=== PATIENT | female | born 1985 | race Caucasian/White ===

== ENCOUNTER 2018-12-14 06:29 | Inpatient (IN) ==
--- NOTE | 2018-12-08 08:52 | PAT Medication Instructions ---
Medication Instructions Date of Service December 08, 2018 Home Medications PNV cmb#95-ferrous fumarate-FA [] 1 tab PO HS ranitidine HCl 150 mg PO DAILY DO NOT take the morning of surgery ranitidine HCl 150 mg PO DAILY Take evening before surgery PNV cmb#95-ferrous fumarate-FA [] 1 tab PO HS Other Notes If you have any questions please call us at [phone] or [phone] or [phone] or [phone]
--- NOTE | 2018-12-08 12:54 | Anesthesiology Consultation ---
Date of Service December 08, 2018 Assessment & Plan (1) Encounter for pre-operative examination: Per patient, no known hx blood transfusions. Per OB, no labs to be drawn at [facility]; ordered for AM day of c/s. Chart Review Chart Review: Acceptable Risk for Surgery (pending labs AM day of c/s) and Patient seen in Pre Admission Testing Teaching & Discussion Pre-Anesthesia Teaching/Discussion Notes: Instructed NPO after midnight before surgery,except medications with 15 cc of water. Medication instructions provided according to the [facility] guidelines. History Surgery Operation Date: 12/14/18 07:30 Proposed Procedures p Section in LD with - Kumar Xiong MD s Post Tubal Ligation - Kumar Xiong MD Height/Weight Height: 5 ft 5 in Weight: 99.8 kg Allergies Allergy/AdvReac Type Severity Reaction Status Date / Time No Known Allergies Allergy Verified 12/02/18 08:40 Medications Home Medications Medication Instructions Recorded Confirmed Last Taken PNV cmb#95-ferrous fumarate-FA 1 tab PO HS 12/02/18 12/02/18 Unknown [] ranitidine HCl 150 mg PO DAILY 12/02/18 12/02/18 Unknown Past Medical History Medical History Degenerative disc disease GERD (gastroesophageal reflux disease) CONTROLLED WITH ZANTAC Osteoarthritis Exercise / Class Metabolic Activity III < 4 Walking/Shop/Light housework Past Family History Family History Mother Family history of diabetes mellitus Father Family hx of colon cancer Past Surgical History Surgical History History of appendectomy History of section 2013 = 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= EPIDURAL ?DOSED FOR C/S- PATIENT REPORTS PAIN DURING C/S History of colonoscopy History of conization of cervix History of tooth extraction Past Anesthesia History No Hx of Anesthesia Complications and No Family Hx of Anesthesia Complications History of PONV No Hx of PONV and No Hx of Motion Sickness Social History Smoking Status: Former smoker tobacco type: cigarettes Do You Dip or Chew Tobacco: No Smoking End Date: QUIT 2012 Hx Alcohol Use: No Hx Substance Use: No substance use type: does not use Review of Systems Patient denies chest pain, shortness of breath, cough, wheezing, palpitations. Physical Exam Vital Signs VITALS BP 111/73 P 98 TEMP 98.4 SP02 98%RA RESP 16 PHYSICAL Full neck and c-spine range of motion. Full TMJ range of motion. TMD 4 finger breaths Mallampati Score 3 Dentition: missing molars Lungs: clear throughout to auscultation Cardiac: regular rate and rhythm, no murmurs noted Spine: normal Carotid arteries: negative bruit Extremities: no edema
--- NOTE | 2018-12-14 01:14 | History and Physical Report ---
DATE OF ADMISSION: 12/14/2018 REASON FOR ADMISSION: Term elective repeat section at 39 weeks. HISTORY OF PRESENT ILLNESS: The patient is a 33-year-old female 2, para 1-0-0-1, admitted for elective repeat section at 39 weeks. PAST MEDICAL HISTORY: Positive for history of tobacco use. SOCIAL HISTORY: Denies smoking at this point. No alcohol or drug use. PAST SURGICAL HISTORY: Includes primary section, appendix, ankle surgery and breast implants. FAMILY HISTORY: Noncontributory. REVIEW OF SYSTEMS: Negative. ALLERGIES: No known drug allergies. POLLEN IS THE ONLY LISTED ALLERGY. MEDICATIONS: vitamin. PHYSICAL EXAMINATION: HEENT: Within normal limits. LUNGS: Clear to auscultation. CARDIOVASCULAR: Regular rate and rhythm. ABDOMEN: Soft, nontender, gravid. NEUROLOGIC: Intact, no edema. LABORATORY DATA: Group B strep is positive. ASSESSMENT AND PLAN: Term for elective repeat section. The patient is refusing trial of labor after .
[2018-12-14] MEDS ORDERED: LACTATED RINGER'S 1,000 ML IV SCH ×3 (06:45→10:15)
[2018-12-14 06:52] LABS: Basophils # (auto) 0.01 K/uL (0-0.2); Basophils % (auto) 0.1 %; Eosinophils # (auto) 0.05 K/uL (0-0.5); Eosinophils % (auto) 0.6 %; Hematocrit (blood only) 36.2 % (37-47); Hemoglobin 12.6 g/dL (12.0-16.0); Immature Granulocytes # (auto) 0.04 K/uL (0.00-0.02); Immature Granulocytes % (auto) 0.5 %; Lymphocytes # (auto) 1.94 K/uL (1.2-3.4); Lymphocytes % (auto) 23.4 %; Mean Corpuscular Volume 87.4 fL (80-100); Mean Platelet Volume 10.1 fL (7.4-10.4); Monocytes # (auto) 0.67 K/uL (0.11-0.59); Monocytes % (auto) 8.1 %; Neutrophils # (auto) 5.58 K/uL (1.4-6.5); Neutrophils % (auto) 67.3 %; Platelet Count 183 K/uL (130-400); RDW Coefficient of Variation 13.8 % (11.5-14.5); RDW Standard Deviation 43.9 fL (36.4-46.3); Red Blood Count 4.14 M/uL (4.2-5.4); White Blood Count 8.29 K/uL (4.8-10.8)
[2018-12-14 07:00] LABS: Mean Corpuscular Hgb Conc 34.8 g/dL (32-36)
[2018-12-14] MEDS ORDERED: CITRIC ACID/SODIUM CITRATE 15 ML UDC PO SCH (07:00)
[2018-12-14] MEDS ORDERED: CEFAZOLIN 3000MG 65 ML IV SCH (07:00)
--- NOTE | 2018-12-14 07:26 | History & Physical Bridge Note ---
Date of Service December 14, 2018 History & Physical Bridge Note I have examined the patient, reviewed the History & Physical and in the interval since the performance of the History & Physical I have noted the following changes of clinical significance: no changes noted
[2018-12-14] MEDS ORDERED: fentaNYL citrate 100 MCG/2 ML VIAL ONE (08:52)
[2018-12-14] MEDS ORDERED: MoRPHine SULFATE PF 1 MG/ML 10 ML AMP/VIAL ONE (08:52)
[2018-12-14] MEDS ORDERED: NALOXONE HCL 1 MG in SODIUM CHLORIDE 0.9% 1000ML 1,000 ML IV PRN (09:50)
[2018-12-14] MEDS ORDERED: ONDANSETRON INJ 2 MG/ML 2 ML VIAL ONE (09:50)
[2018-12-14] MEDS ORDERED: OXYTOCIN 10 UNITS/ML VIAL ONE (09:50)
[2018-12-14] MEDS ORDERED: MEPERIDINE HCL 25 MG/ML CARP IV PRN (09:50)
[2018-12-14] MEDS ORDERED: NALBUPHINE HCL INJ 10 MG/ML AMP IV PRN (09:50)
[2018-12-14] MEDS ORDERED: PHENYLEPHRINE HCL 10 MG/ML VIAL ONE (09:50)
[2018-12-14] MEDS ORDERED: ONDANSETRON INJ 2 MG/ML 2 ML VIAL IV PRN (09:50)
[2018-12-14] MEDS ORDERED: NALOXONE HCL 0.08 MG in SYRINGE 1.8 ML IV PRN (09:50)
[2018-12-14] MEDS ORDERED: ePHEDrine sulfate 50 MG/ML AMP IV PRN (09:50)
[2018-12-14] MEDS ORDERED: MoRPHine SULFATE PF 1 MG/ML 10 ML AMP/VIAL INT SPINAL ONE (09:50)
[2018-12-14] MEDS ORDERED: MoRPHine SULFATE 2 MG/ML CARP IV PRN (09:50)
[2018-12-14] MEDS ORDERED: DiphenhydrAMINE HCL 50 MG/ML VIAL IV PRN (09:50)
[2018-12-14] MEDS ORDERED: LACTATED RINGER'S 500 ML IV PRN (09:50)
[2018-12-14] MEDS ORDERED: NALOXONE HCL 0.4 MG/1 ML VIAL/CARP IV PRN (09:50)
[2018-12-14] MEDS ORDERED: NO NARCOTICS OR SEDATIVES SCH (10:00)
[2018-12-14] MEDS ORDERED: SODIUM CHLORIDE 0.9% 1000ML 1,000 ML IV SCH (10:00)
--- NOTE | 2018-12-14 10:10 | Post Operative Brief Note ---
Immediate Post Op Note v1 Date of Surgery December 14, 2018 Pre & Post Diagnosis Operation Date: 12/14/18 08:30 Pre-Op Diagnosis: Term elective repeat section at 39 weeks, desires tubal ligation Post-Op Diagnosis: Same as pre-op Procedure Operation Date: 12/14/18 08:30 Actual Procedures p Section in LD; delivery live male child at 0935 - Kumar Xiong MD s Post Tubal Ligation(Bilateral) - Kumar Xiong MD Surgeon Kumar Xiong MD Direct Entry Midwife Peggy Estimated Blood Loss 400 Findings Consistent with Post-Op Diagnosis live male Apgars and weight pending Fluids 1300 ml. Specimens Placenta Drains Rivera Catheter (applied after anesthesia by Tommy Arnold RN; clear yellow urine) Anesthesia Type Spinal Complications none Disposition Accompanied Patient To Recovery: Yes Disposition: L&D Overlapping Procedure I was present for: the critical portions of procedure. I was immediately available: during the entire case. Back up surgeon: used during listed procedure.
[2018-12-14] MEDS ORDERED: MAGNESIUM HYDROXIDE SUSP 30 ML UDC PO PRN (10:12)
[2018-12-14] MEDS ORDERED: SENNA 8.6 MG TAB PO PRN (10:12)
[2018-12-14] MEDS ORDERED: DIPHTHERIA/TETANUS/PERTUSSIS 0.5 ML SYR/VIAL IM ONE (10:12)
[2018-12-14] MEDS ORDERED: HYDROCORTISONE ACETATE 25 MG SUPP PR PRN (10:12)
[2018-12-14] MEDS ORDERED: MEASLES, MUMPS & RUBELLA VIRUS VIAL SQ ONE (10:12)
[2018-12-14] MEDS ORDERED: BENZOCAINE 20% AER SPR 82.5 GM CAN EXT PRN (10:12)
[2018-12-14] MEDS ORDERED: SUPERCREAM 0.870% 15 GM JAR EXT PRN (10:12)
--- NOTE | 2018-12-14 10:22 | Anesthesiology Progress Note ---
Date of Service December 14, 2018 Anesthesia Post Procedure Vital Signs Vital Signs: Temp Pulse Resp BP Pulse Ox 12/14/18 10:19 95 H 105/53 L 100 12/14/18 07:26 36.9 C 20 12/14/18 06:50 36.9 C 94 H 18 125/69 Transfer of Care Handoff Completed per policy Notes Mental Status: alert / awake / arousable Patient Amnestic to Procedure: No Nausea / Vomiting: adequately controlled Pain: adequately controlled Airway Patency, RR, SpO2: stable & adequate BP & HR: stable & adequate Hydration State: stable & adequate Neuraxial Anesthesia: was administered and sensory block is resolving Anesthetic Complications: no major complications apparent and Pt Satisfied with anesthetic care
[2018-12-14] MEDS: KETOROLAC 30 MG/ML VIAL IV PRN ×2 (11:50→21:04)
[2018-12-14] MEDS ORDERED: OXYTOCIN 20 UNITS in LACTATED RINGER'S 1,000 ML IV SCH (12:15)
[2018-12-14] MEDS: SIMETHICONE 80 MG CHEW PO SCH ×2 (17:30→21:05)
[2018-12-14] MEDS ORDERED: NON-FORMULARY MEDICATION (Pnv Cmb#95-Ferrous Fumarate-Fa [Prenatal] 1 TAB) PO SCH (21:00)
[2018-12-14] MEDS: DOCUSATE SODIUM 100 MG CAP PO SCH (21:04)
--- NOTE | 2018-12-15 01:09 | Operative Report ---
DATE OF OPERATION: 12/14/2018 PREOPERATIVE DIAGNOSIS: Term elective repeat section and voluntary sterilization. POSTOPERATIVE DIAGNOSIS: Term elective repeat section and voluntary sterilization. PROCEDURE: Repeat section, low segment transverse and bilateral tubal ligation with Filshie clips. SURGEON: Kumar Xiong MD CIVILIAN TECHNICIAN: Sahil Woods MD and DARLEEN Florence. ANESTHESIA: Spinal. ESTIMATED BLOOD LOSS: 400 mL. FINDINGS: Live male, Apgars 9 and 9, weight 8 pounds 15 ounces. COMPLICATIONS: None. CLINICAL HISTORY: The patient is a 33-year-old female para 1-0-0-1 at 39 weeks, admitted for an elective repeat section and bilateral tubal ligation. The patient was given informed consent regarding the surgery. Time-out was called prior to the start of the procedure and antibiotics were given preop. DESCRIPTION OF PROCEDURE: Under satisfactory spinal anesthesia, the patient was prepped and draped in usual sterile fashion. A low Pfannenstiel incision through a prior scar was then made entering into the abdominal cavity in successive layers without difficulty. Upon entering into the abdominal cavity, pickups and Metzenbaum scissors were then used to develop a bladder flap. This was gently pushed down. A low segment transverse incision over the lower uterine segment was made. The incision was widened in the AP diameter. Amniotic sac was nicked with Allis clamp. Clear fluid was noted. The was then delivered with the aid of fundal pressure delivering a live male. There was delayed cord clamping for a little over a minute. After the cord was cut and clamped, the baby was handed to the preparation supervisor freezing. The Apgars were 9 and 9. weight was 8 pounds 15 ounces. Cord blood was obtained. Placenta was then delivered spontaneously and intact. The uterus was then exteriorized. Ring forceps were then placed on both angles in the inferior margin. The other ring was then used to dilate the cervix. Uterus was closed in a single layer closure of 0 Vicryl suture in a continuous interlocking fashion. The tubes, ovaries bilaterally were found to be within normal limits. The lower uterine segment was inspected and irrigated. No active bleeding was noted. Both tubes were then identified and they were serially clipped with 2 Filshie clips each. No active bleeding was noted. The uterus was then placed back into the abdominal cavity. The tubes were inspected, no active bleeding was noted. The fascia was then reapproximated from both ends using 0 Vicryl suture in a continuous running fashion. Subcuticular space was irrigated. Bleeders were cauterized. The subcutaneous layer was then closed with 3-0 plain suture in a continuous fashion followed by 4-0 Monocryl for the subcuticular layer of the skin. Steri-Strips were applied. Clear urine was noted from the Rivera. Estimated blood loss was approximately 400 mL. Final sponge, needle, and instrument counts were found to be correct. The patient was then placed upon a stretcher and taken to recovery room in stable condition. I attest to the content of the Intraoperative Record and any orders documented therein. Any exception s are noted below.
[2018-12-15] MEDS ORDERED: DiphenhydrAMINE HCL 50 MG/ML VIAL IV PRN (03:50)
[2018-12-15] MEDS ORDERED: PROMETHAZINE HCL 25 MG in SODIUM CHLORIDE 0.9% 50 ML IV PRN (03:50)
[2018-12-15] MEDS ORDERED: ONDANSETRON INJ 2 MG/ML 2 ML VIAL IV PRN (03:50)
[2018-12-15] MEDS ORDERED: DC INTRASPINAL MORPHINE SCH (03:50)
[2018-12-15] MEDS ORDERED: MEPERIDINE HCL 50 MG/ML CARP IV PRN (03:50)
[2018-12-15] MEDS ORDERED: KETOROLAC 30 MG/ML VIAL IV PRN (03:50)
[2018-12-15] MEDS ORDERED: CEFAZOLIN 3000MG 65 ML IV SCH (06:00)
[2018-12-15] MEDS ORDERED: LR 15ML/HR IV SCH (06:00)
[2018-12-15 07:00] LABS: Basophils # (auto) 0.01 K/uL (0-0.2); Basophils % (auto) 0.1 %; Eosinophils # (auto) 0.03 K/uL (0-0.5); Eosinophils % (auto) 0.4 %; Hematocrit (blood only) 31.9 % (37-47); Hemoglobin 11.2 g/dL (12.0-16.0); Immature Granulocytes # (auto) 0.03 K/uL (0.00-0.02); Immature Granulocytes % (auto) 0.4 %; Mean Corpuscular Hgb Conc 35.1 g/dL (32-36); Mean Corpuscular Volume 89.9 fL (80-100); Mean Platelet Volume 9.8 fL (7.4-10.4); Monocytes # (auto) 0.51 K/uL (0.11-0.59); Neutrophils # (auto) 6.77 K/uL (1.4-6.5); Neutrophils % (auto) 79.1 %; Platelet Count 149 K/uL (130-400); Red Blood Count 3.55 M/uL (4.2-5.4); White Blood Count 8.55 K/uL (4.8-10.8)
[2018-12-15] MEDS: SIMETHICONE 80 MG CHEW PO SCH ×3 (07:48→20:18)
[2018-12-15] MEDS: DOCUSATE SODIUM 100 MG CAP PO SCH ×2 (07:48→20:18)
[2018-12-15] MEDS: FERROUS SULFATE 325 MG TAB PO SCH (07:48)
[2018-12-15] MEDS: PRENATAL VITAMIN 1 TAB PO SCH (07:48)
[2018-12-15] MEDS: IBUPROFEN 600 MG TAB PO PRN ×4 (07:48→20:18)
[2018-12-15] MEDS: OXYCODONE/ACETAMINOPHEN 5mg/325mg TAB PO PRN ×4 (07:48→23:29)
[2018-12-15] MEDS ORDERED: BISACODYL 5 MG TABEC PO SCH (20:00)
[2018-12-16] MEDS: IBUPROFEN 600 MG TAB PO PRN ×2 (04:32→09:26)
[2018-12-16] MEDS: SIMETHICONE 80 MG CHEW PO SCH (07:28)
[2018-12-16] MEDS: DOCUSATE SODIUM 100 MG CAP PO SCH (07:28)
[2018-12-16] MEDS: PRENATAL VITAMIN 1 TAB PO SCH (07:28)
[2018-12-16] MEDS: FERROUS SULFATE 325 MG TAB PO SCH (07:28)
[2018-12-16 07:39] LABS: Hematocrit (blood only) 32.3 % (37-47); Hemoglobin 10.8 g/dL (12.0-16.0)
--- NOTE | 2018-12-16 08:23 | Obstetrical Progress Note ---
Date of Service December 16, 2018 Assessment & Plan (1) delivery delivered: POD #2 pt doing well disch home with instructions Subjective Ambulation: ambulating normally Voiding: no voiding problems Passing Gas:: Yes Diet Tolerance:: clear liquids Lochia:: Small Feeding Type:: breast feeding Review of Systems All systems reviewed & are unremarkable except as noted in HPI & below Physical Exam Constitutional WD/WN, vitals as above well developed and well nourished Eyes PERRL, conjunctivae normal, anicteric sclerae ENMT external ear and nose normal, oropharynx normal Neck trachea midline, no thyromegaly Respiratory normal respiratory effort, lungs clear to auscultation Cardiovascular RRR, no murmur, no edema Chest (Breasts) normal inspection/palpation of breasts Gastrointestinal (Abdomen) normal bowel sounds, soft, nontender, no hepatosplenomegaly Musculoskeletal no cyanosis or clubbing, extremities motor strength 5/5 Skin no rashes, warm and dry + incision (Clean,dry and intact) Neurologic patellar DTR's 2+ bilat, sensation intact Psychiatric A+Ox3, euthymic affect Genitourinary normal external appearance Lymphatic no cervical or axillary lymphadenopathy Results & Data Vital Signs (Past 12 Hours) Vital Signs Temp Pulse Resp BP 12/15/18 23:25 37.1 C 101 H 20 116/78
[2018-12-16] MEDS: OXYCODONE/ACETAMINOPHEN 5mg/325mg TAB PO PRN (09:27)
[2018-12-16] MEDS ORDERED: BISACODYL 10 MG SUPP PR PRN (10:12)
--- NOTE | 2018-12-29 06:39 | Discharge Summary ---
REASON FOR ADMISSION: Term elective repeat section and voluntary sterilization. CLINICAL HISTORY AND HOSPITAL COURSE: The patient is a 33-year-old female 2, para 1-0-0-1 at 39 weeks and 1 day, admitted for an elective repeat section and voluntary sterilization procedure. The patient had spinal anesthesia delivering a live male. Apgars were 9 and 9. weight was 8 pounds 15 ounces. The tubes were tied with Filshie clips. Hospital course was unremarkable. The patient had no complications. She was discharged home on 12/16/2018 on the second postoperative day in stable condition. Homegoing instructions were given. CONDITION ON DISCHARGE: Stable. DIET: Regular diet on discharge. MEDICATIONS: Include Motrin and Percocet for pain. DISCHARGE INSTRUCTIONS: Followup will be in the office in 1 week for incision check.
== END 2018-12-16 10:20 | disposition home or self-care (01) | DRG 785 ==
LOC: 4S1 06:29 → EDSTATUS 07:30 → 4S2 14:34
PROC: M.PPTLD (2018-12-14 08:30)